=== PATIENT | female | born 1960 | race Caucasian/White ===

== ENCOUNTER → 2018-09-29 | Outpatient (CLI) | payer BC ==
--- NOTE | 2018-10-01 14:53 | MM ---
Reason for exam: screening (asymptomatic). Last mammogram was performed 2 years and 11 months ago. Physical Findings: A clinical breast exam by your physician is recommended on an annual basis and results should be correlated with mammographic findings. MG 3D Screening Mammo W/Cad Bilateral CC and MLO view(s) were taken. Prior study comparison: February 10, 2017, mammogram, performed at [facility]. November 14, 2015, bilateral MG screening mammo w CAD. July 24, 2014, bilateral MG screening mammo w CAD. The breast tissue is heterogeneously dense. This may lower the sensitivity of mammography. No suspicious abnormality. No significant changes when compared with prior studies. ASSESSMENT: Negative, BI-RAD 1 RECOMMENDATION: Routine screening mammogram of both breasts in 1 year.
== END | disposition home or self-care (01) ==
LOC: RADMAMWWP 16:51
PROVIDERS: ATTEND Obstetrics & Gynecology
DX: Z12.31 Encounter for screening mammogram for malignant neoplasm of breast (principal)
CPT/HCPCS: 77063; 77067

== ENCOUNTER → 2022-03-12 | Outpatient (CLI) | payer BC ==
--- NOTE | 2022-03-13 23:18 | XR ---
EXAMINATION TYPE: XR ankle complete LT, XR foot complete LT DATE OF EXAM: 03/12/2022 CLINICAL HISTORY: Pain. TECHNIQUE: Frontal, lateral and oblique images of the left ankle and foot are obtained. COMPARISON: None. FINDINGS: There is no acute fracture/dislocation evident in the left ankle. The ankle mortise appea rs within normal limits. Small size inferior calcaneal spur. The overlying soft tissue appears unrema rkable. There is no acute fracture or dislocation evident in the left foot. The joint spaces in the left kostas t are preserved. Overlying soft tissue is unremarkable. IMPRESSION: As above.
== END | disposition home or self-care (01) ==
LOC: RADXRMAIN 17:12
PROVIDERS: ATTEND Family Medicine
DX: M77.32 Calcaneal spur, left foot (principal)

== ENCOUNTER 2022-05-03 12:19 | Emergency (ER) | payer BC ==
[2022-05-03 12:29] VITALS: BP 157/94; PULSE 100; RESP 20; TEMP 97
--- NOTE | 2022-05-03 12:45 | ED ---
General Adult HPI - General Chief complaint: Extremity Injury, Lower Stated complaint: fall - left ankle injury Time Seen by Provider: 05/03/22 12:30 Source: patient, RN notes reviewed Mode of arrival: ambulatory Limitations: no limitations - History of Present Illness Initial comments: Patient is a pleasant 61-year-old female presenting to the emergency department with concern regarding ankle injury. Patient did have a fall less than a week ago down some steps. Patient inverted her ankle and has been having some discomfort since that time. Patient fell again today now with increased discomfort. Patient is able to ambulate with pain. Left ankle discomfort is 9/10. Patient also has some mild foot discomfort and moderate left knee discomfort. No history of chronic lung problems. No head injury or loss of consciousness. No abdominal pain - Related Data Allergies Allergy/AdvReac Type Severity Reaction Status Date / Time Penicillins Allergy Unknown Verified 05/03/22 12:30 Sulfa (Sulfonamide Allergy Unknown Verified 05/03/22 12:30 Antibiotics) Review of Systems ROS Statement: Those systems with pertinent positive or pertinent negative responses have been documented in the HPI. ROS Other: All systems not noted in ROS Statement are negative. Constitutional: Denies: fever Eyes: Denies: eye pain ENT: Denies: ear pain Respiratory: Denies: cough, dyspnea Cardiovascular: Denies: chest pain Endocrine: Denies: fatigue Gastrointestinal: Denies: abdominal pain Genitourinary: Denies: dysuria Musculoskeletal: Reports: as per HPI Skin: Denies: rash Neurological: Denies: weakness Past Medical History Additional Past Medical History / Comment(s): hypothyroid History of Any Multi-Drug Resistant Organisms: None Reported Past Surgical History: Section, Cholecystectomy Additional Past Surgical History / Comment(s): knee surgery (bilateral). Past Psychological History: No Psychological Hx Reported Smoking Status: Never smoker Past Alcohol Use History: None Reported, Occasional Past Drug Use History: None Reported General Exam Limitations: no limitations General appearance: alert, in no apparent distress Head exam: Present: normocephalic Eye exam: Present: normal appearance Neck exam: Present: normal inspection. Absent: tenderness Respiratory exam: Present: normal lung sounds bilaterally Cardiovascular Exam: Present: regular rate, normal rhythm Expanded Peripheral pulses: 2+: Posterior Tibialis (L), Dorsalis Pedis (L) GI/Abdominal exam: Present: soft. Absent: tenderness Extremities exam: Present: tenderness (Left lateral ankle moderate swelling and moderate to severe tenderness. Minimal tenderness left dorsal proximal foot. Minimal tenderness left anterior knee). Absent: calf tenderness Neurological exam: Present: alert. Absent: motor sensory deficit Psychiatric exam: Present: normal affect, normal mood Skin exam: Present: normal color Course Vital Signs 05/03/22 12:26 Temperature 97 F L Pulse Rate 100 Respiratory 20 Rate Blood Pressure 157/94 O2 Sat by Pulse 98 Oximetry Medical Decision Making - Medical Decision Making Patient reevaluated and updated - Radiology Data Radiology results: image reviewed Disposition Clinical Impression: Left ankle sprain Disposition: HOME SELF-CARE Condition: Stable Instructions (If sedation given, give patient instructions): Ankle Sprain (ED), Knee Pain (ED) Additional Instructions: Please do follow-up with primary care physician in the next couple days for recheck. Return for increased pain, swelling, difficulty walking, worsening symptoms or any other concerns. Ice to affected area. Continue Motrin as needed. Is patient prescribed a controlled substance at d/c from ED?: No Referrals: Speedy Mujica MD [Primary Care Provider] - 1-2 days Time of Disposition: 14:07
[2022-05-03] MEDS ORDERED: KETOROLAC 15 MG/ML 1 ML VIAL IM STA (14:07)
--- NOTE | 2022-05-03 14:29 | XR ---
EXAMINATION TYPE: Left knee DATE OF EXAM: 05/03/2022 COMPARISON: None HISTORY: Pain TECHNIQUE: 3 view left knee FINDINGS: Medial and lateral compartment joint spaces are normal. No joint effusion is evident. No ac maría fracture or dislocation is evident. Soft tissues are normal. Follow-up exams can be performed 7-10 days from acute trauma for continued pain. IMPRESSION: 1. No acute osseous abnormality left ankle
--- NOTE | 2022-05-03 14:29 | XR ---
EXAMINATION TYPE: Left foot DATE OF EXAM: 05/03/2022 COMPARISON: None HISTORY: Pain TECHNIQUE: Three-view left foot FINDINGS: No acute fracture or dislocation is evident. Joint spaces are preserved. Soft tissues appea r normal. Plantar and Achilles tendon calcaneal heel spurs are present. Follow up exams can be performed 7-10 days from acute trauma for continued pain. IMPRESSION: 1. No acute osseous abnormality left foot. EXAMINATION TYPE: Left ankle DATE OF EXAM: 05/03/2022 COMPARISON: None HISTORY: Pain TECHNIQUE: Three-view left ankle FINDINGS: Plantar and Achilles tendon calcaneal heel spurs are present. Ankle mortise is intact. Soft tissues appear within normal limits. Follow up exams can be performed 7-10 days from acute trauma for continued pain. IMPRESSION: 1. No acute osseous abnormality left ankle.
== END 2022-05-03 14:27 | disposition home or self-care (01) ==
LOC: EC 12:19
DX: S93.402A Sprain of unspecified ligament of left ankle, initial encounter (principal); Z88.0 Allergy status to penicillin; Z88.2 Allergy status to sulfonamides; W10.9XXA Fall (on) (from) unspecified stairs and steps, initial encounter
CPT/HCPCS: 73562; 73610; 73630; 99284; 96372; J1885

== ENCOUNTER → 2024-11-03 | Outpatient (CLI) | payer BC ==
--- NOTE | 2024-11-03 10:08 | XR ---
EXAMINATION TYPE: XR chest 2V DATE OF EXAM: 11/03/2024 10:01 AM COMPARISON: None. CLINICAL INDICATION: Female, 64 years old with history of J18.9 Pneumonia: Shortness of breath TECHNIQUE: XR chest 2V views of the chest are obtained. FINDINGS: Scattered senescent parenchymal changes noted. Hyperinflation compatible with COPD. No evidence for infiltrate. No evidence for atelectasis. Nodular density right upper lobe. CT is idalia mmended for further evaluation. Heart size is stable. Mediastinal structures are stable and grossly unremarkable. No evidence for hilar prominence. Degenerative changes dorsal spine. IMPRESSION: 1. Nodular density right upper lobe. CT is recommended for further evaluation. [facility], , 11/03/2024 10:06 AM
== END | disposition home or self-care (01) ==
LOC: RADXRMAIN 09:39
PROVIDERS: ATTEND Family Medicine
DX: J18.9 Pneumonia, unspecified organism (principal); J98.4 Other disorders of lung
CPT/HCPCS: 71046

== ENCOUNTER → 2024-11-17 | Outpatient (CLI) | payer BC ==
--- NOTE | 2024-11-17 15:19 | CT ---
EXAMINATION TYPE: CT chest w con DATE OF EXAM: 11/17/2024 12:12 PM COMPARISON: Radiograph 11/03/2024 CLINICAL INDICATION: Female, 64 years old with history of R10.1 SOLITARY PULMONARY NODULE; PHH, Lung nodule. Hx of pneumonia. TECHNIQUE: Multiple axial images were obtained through the chest. Sagittal and coronal reformats were created for review. MIP was performed on a separate workstation. Contrast used:100 ml mL of Isovue [address] DLP: 448.9 mGycm, Automated exposure control for dose reduction was used. FINDINGS: The heart is normal size without pericardial effusion. No significant coronary calcifications are see n. Aorta normal caliber with conventional arch vessel branching anatomy. No thoracic lymphadenopathy by CT size criteria. Lungs show no consolidation or pleural effusion. There is some focal patchy groundglass opacity anter ior right upper lobe which seems to correspond to the location of the abnormal radiographic opacity. Otherwise, no suspicious pulmonary nodule is identified. There is a small hiatal hernia. Cholecystectomy clips in the upper abdomen. Bones: Moderate degenerative disc disease lower thoracic spine. IMPRESSION: 1. A focal groundglass infiltrate anterior right upper lobe seems to correspond to the location of ab normal radiographic opacity. Correlate for symptoms of pneumonia. Recommend three-month follow-up CT to ensure clearance. 2. Small hiatal hernia. [facility], , 11/17/2024 3:16 PM
== END | disposition home or self-care (01) ==
LOC: RADCTMAIN 11:39
PROVIDERS: ATTEND Family Medicine
DX: R91.1 Solitary pulmonary nodule (principal); K44.9 Diaphragmatic hernia without obstruction or gangrene; R91.8 Other nonspecific abnormal finding of lung field
CPT/HCPCS: 71260; Q9967